=== PATIENT | male | born 1980 | race Two or more races ===

== ENCOUNTER 2018-10-17 11:40 | Inpatient (IN) | payer OTHER ==
[2018-10-17 15:57] VITALS: BMI 40.0
--- NOTE | 2018-10-17 16:32 | HP ---
CIWA Score - Admission Criteria OASAS Guidelines: Admission for Medically Managed Detox: Requires at least one of the followin. CIWA greater than 12 2. Seizures within the past 24 hours 3. Delirium tremens within the past 24 hours 4. Hallucinations within the past 24 hours 5. Acute intervention needed for co occurring medical disorder 6. Acute intervention needed for co occurring psychiatric disorder 7. Severe withdrawal that cannot be handled at a lower level of care (continued vomiting, continued diarrhea, abnormal vital signs) requiring intravenous medication and/or fluids 8. Admission ROS S - HPI Chief Complaint: opioid and cocaine rehabilitation Allergies/Adverse Reactions: Allergies Allergy/AdvReac Type Severity Reaction Status Date / Time shellfish derived Allergy Severe Swelling Verified 10/17/18 15:25 Penicillins AdvReac Severe Swelling Verified 10/17/18 15:24 History of Present Illness: 37 yo male with hx of heroin (IV), cocaine and nicotine dependence is here seeking rehabilitation. Patient anuel was admitted for three weeks to [facility] and discharged today for psych for depression and was alaso treated for multiple abscess and detoxed for opiates d/t depression. Reports was linked to [facility] on 120 mg, reports last attendance one and half months ago, pending verification. Reports sobriety for four years, relapsed one year ago. PMHX: Asthma, Hep C, HTN. Psych: Depression and Bipolar. Denies SI /HI. Reports hx of suicide attempt three years ago. Denies hx of overdose seizures or blackouts. Exam Limitations: No Limitations - Ebola screening Have you traveled outside of the country in the last 21 days: No (N) Have you had contact with anyone from an Ebola affected area: No Do you have a fever: No - Review of Systems Constitutional: No Symptoms Reported EENT: reports: No Symptoms Reported Respiratory: reports: No Symptoms reported Cardiac: reports: No Symptoms Reported GI: reports: No Symptoms Reported : reports: No Symptoms Reported Musculoskeletal: reports: Back Pain Integumentary: reports: No Symptoms Reported Neuro: reports: No Symptoms reported Endocrine: reports: Increased Thirst Hematology: reports: No Symptoms Reported Psychiatric: reports: Orientated x3, Anxious Other Systems: Reviewed and Negative Patient History - Patient Medical History Hx Anemia: No Hx Asthma: Yes Hx Chronic Obstructive Pulmonary Disease (COPD): No Hx Cancer: No Hx Cardiac Disorders: No Hx Congestive Heart Failure: No Hx Hypertension: Yes (diet control ) Hx Hypercholesterolemia: No Hx Pacemaker: No HX Cerebrovascular Accident: No Hx Seizures: No Hx Dementia: No Hx Diabetes: No Hx Gastrointestinal Disorders: Yes (GERD ) Hx Liver Disease: Yes (Hep C, no treatment ) Hx Genitourinary Disorders: No Hx Sexually Transmitted Disorders: No Hx Renal Disease (ESRD): No Hx Thyroid Disease: No Hx Human Immunodeficiency Virus (HIV): No Hx Hepatitis C: Yes Hx Depression: Yes Hx Suicide Attempt: No Hx Bipolar Disorder: Yes Hx Schizophrenia: No - Patient Surgical History Past Surgical History: Yes Hx Appendectomy: Yes Anesthesia Reaction: No - PPD History Previous Implant?: No PPD to be Administered?: Yes - Smoking Cessation Smoking history: Current every day smoker Have you smoked in the past 12 months: Yes Aproximately how many cigarettes per day: 20 Hx Chewing Tobacco Use: No Initiated information on smoking cessation: Yes 'Breaking Loose' booklet given: 10/17/18 - Substance & Tx. History Hx Alcohol Use: No Hx Substance Use: Yes Substance Use Type: Cocaine, Heroin Hx Substance Use Treatment: Yes (Completed detox at [facility] ) - Substances abused Cocaine Substance route: Injection Frequency: Daily Amount used: $100.00 Age of first use: 36 Date of last use: 09/24/18 Heroin Substance route: Injection Frequency: Daily Amount used: $100.00 Age of first use: 17 Date of last use: 09/24/18 Family Disease History - Family Disease History Family Disease History: Diabetes: Mother, Heart Disease: Mother, Respiratory: Mother Admission Physical Exam S - Vital Signs Vital Signs: Vital Signs - 24 hr 10/17/18 10/17/18 15:41 16:08 Temperature 96.9 F L 96.9 F L Pulse Rate 107 H 107 H Respiratory 18 18 Rate Blood Pressure 135/82 135/82 - Physical General Appearance: Yes: Appropriately Dressed, Obese, Anxious HEENTM: Yes: EOMI, Hearing grossly Normal, Normal ENT Inspection, Normocephalic , Normal Voice, HARMAN, Pharynx Normal, Tm's normal Respiratory: Yes: Chest Non-Tender, Lungs Clear, Normal Breath Sounds, No Respiratory Distress, No Accessory Muscle Use Neck: Yes: Within Normal Limits Breast: Yes: Breast Exam Deferred Cardiology: Yes: Regular Rhythm, Regular Rate Abdominal: Yes: Normal Bowel Sounds, Non Tender, Flat, Soft Genitourinary: Yes: Within Normal Limits Back: Yes: Within Normal Limits Musculoskeletal: Yes: full range of Motion, Gait Steady, Pelvis Stable Extremities: Yes: Normal Capillary Refill, Normal Inspection, Normal Range of Motion, Non-Tender Neurological: Yes: event decorator II-XII NML intact, Fully Oriented, Alert, Motor Strength 5/5, Depressed Affect Integumentary: Yes: Normal Color, Warm, Diaphoresis Lymphatic: Yes: Within Normal Limits - Diagnostic (1) Opioid dependence Current Visit: Yes Status: Acute Qualifiers: Substance use status: uncomplicated Qualified Code(s): F11.20 - Opioid dependence, uncomplicated (2) IVDU (intravenous drug user) Current Visit: Yes Status: Acute (3) Cocaine dependence Current Visit: Yes Status: Acute Qualifiers: Substance use status: uncomplicated Qualified Code(s): F14.20 - Cocaine dependence, uncomplicated (4) HTN (hypertension) Current Visit: Yes Status: Chronic Qualifiers: Hypertension type: essential hypertension Qualified Code(s): I10 - Essential (primary) hypertension Comment: Diet controlled (5) Asthma Current Visit: Yes Status: Chronic Qualifiers: Asthma severity: mild Asthma persistence: unspecified Asthma complication type: uncomplicated Qualified Code(s): J45.909 - Unspecified asthma, uncomplicated (6) Hepatitis C Current Visit: Yes Status: Chronic Qualifiers: Viral hepatitis chronicity: chronic Hepatic coma status: without hepatic coma Qualified Code(s): B18.2 - Chronic viral hepatitis C Breathalyzer - Breathalyzer Breathalyzer: 0 Urine Drug Screen - Test Device Lot number: [id number] Expiration date: 06/02/20 - Control Is test valid?: Yes - Results Drug screen NEGATIVE: No Urine drug screen results: THC-Marijuana, KILLIAN-Cocaine, MET-Methamphetamine, MTD- Methadone, BZO-Benzodiazepines Inpatient Rehab Admission - Rehab Decision to Admit Inpatient rehab admission?: Yes - Initial Determination Are CD services needed?: Yes Free of communicable disease: Yes Not in need of hospitalization: Yes - Rehab Admission Criteria Previous failed treatment: Yes Poor recovery environment: Yes Comorbidities: Yes Lacks judgement: Yes Patient is meeting Inpatient Rehab admission criteria:: Yes
[2018-10-17] MEDS ORDERED: ACETAMINOPHEN 325 MG TABLET (FP) PO PRN (16:38)
[2018-10-17] MEDS ORDERED: MAG HYDROX/AL HYDROX/SIMETH 30 ML UNIT-DOSE CUP PO PRN (16:38)
[2018-10-17] MEDS ORDERED: P-EPHED 60MG/TRIPROLIDI 2.5MG TABLET PO PRN (16:38)
[2018-10-17] MEDS ORDERED: NICOTINE POLACRILEX 2 MG GUM BC PRN (16:38)
[2018-10-17] MEDS ORDERED: IBUPROFEN 400 MG TABLET (FP) PO PRN (16:38)
[2018-10-17] MEDS ORDERED: MAGNESIUM CITRATE 300 ML BOTTLE PO PRN (16:38)
[2018-10-17] MEDS ORDERED: MAGNESIUM HYDROX 2400MG/30ML ORAL SUSPENSION 30 ML CUP PO PRN (16:38)
[2018-10-17] MEDS ORDERED: MENTHOL/PHENOL 1 EACH UD MM PRN (16:38)
[2018-10-17] MEDS ORDERED: LOPERAMIDE HCL 2 MG CAPSULE PO PRN (16:38)
[2018-10-17] MEDS ORDERED: guaiFENesin 200 MG/10 ML 10 ML UNIT-DOSE CUPS PO PRN (16:38)
[2018-10-17] MEDS ORDERED: hydrOXYzine PAMOATE 50 MG CAPSULE (FP) PO PRN (16:38)
--- NOTE | 2018-10-17 17:09 | PN ---
[facility] Progress Note Note: Vital Signs Temperature 96.9 F L 10/17/18 16:08 Pulse Rate 107 H 10/17/18 16:08 Respiratory Rate 18 10/17/18 16:08 Blood Pressure 135/82 10/17/18 16:08 O2 Sat by Pulse Oximetry (%) Patient on multiple psych meds did not bring meds with him. Meds reviewed with psych over the phone and patient will be evaluated. one time dose trazadone 100mg HS ordered for today. Continue to monitor.
[2018-10-17] MEDS ORDERED: BACITRACIN 0.9 GM PACKET TP ONE (17:45)
[2018-10-17] MEDS: ALBUTEROL SO4 8 GM HFA INHALER IH SCH ×2 (18:03→21:48)
[2018-10-17] MEDS: GABAPENTIN 100 MG CAPSULE (FP) PO SCH (21:47)
[2018-10-17] MEDS: THIAMINE HCL 100 MG TABLET (FP) PO SCH (21:48)
[2018-10-17] MEDS ORDERED: traZODone HCL 100 MG TABLET (FP) PO ONE (22:00)
[2018-10-17] MEDS ORDERED: MELATONIN 5 MG TABLETS PO PRN (22:00)
[2018-10-18] MEDS: ALBUTEROL SO4 8 GM HFA INHALER IH SCH ×4 (04:50→23:25)
[2018-10-18] MEDS: GABAPENTIN 100 MG CAPSULE (FP) PO SCH ×3 (06:14→21:34)
[2018-10-18 06:52] VITALS: BP 121/80; PULSE 86; TEMP 97.4
[2018-10-18] MEDS ORDERED: PRENATAL VITAMINS W/ FOLIC ACID TABLET (FP) PO SCH (10:00)
[2018-10-18] MEDS ORDERED: NICOTINE 14 MG/24 HOURS TOPICAL PATCH TD SCH (10:00)
--- NOTE | 2018-10-18 12:25 | EKG ---
Test Reason : Blood Pressure : / mmHG Vent. Rate : 098 BPM Atrial Rate : 098 BPM P-R Int : 140 ms QRS Dur : 084 ms QT Int : 350 ms P-R-T Axes : 052 062 046 degrees QTc Int : 446 ms NORMAL SINUS RHYTHM NORMAL ECG NO PREVIOUS ECGS AVAILABLE Confirmed by CANDIDO ORTIZ, GLORIA ([id number]) on 10/18/2018 12:25:15 PM Referred By: Confirmed By:GLORIA REY MD
[2018-10-18 12:50] LABS: ALBUMIN 3.6 g/dl (3.4-5.0); ALK PHOS 100 U/L (45-117); ANION GAP 9 MMOL/L (8-16); BILIRUBIN,TOTAL 0.4 mg/dL (0.2-1); BLOOD UREA NITROGEN 9 mg/dL (7-18); CALCIUM 9.3 mg/dL (8.5-10.1); CHLORIDE 104 mmol/L (98-107); CO2 25 mmol/L (21-32); CREATININE 0.7 mg/dL (0.55-1.3); GLUCOSE,RANDOM 157 mg/dL (74-106); POTASSIUM 3.8 mmol/L (3.5-5.1); SGOT/AST 26 U/L (15-37); SGPT/ALT 41 U/L (13-61); SODIUM 138 mmol/L (136-145); TOT PROT 7.7 g/dl (6.4-8.2)
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
--- NOTE | 2018-10-18 13:29 | PN ---
[facility] Progress Note Note: PT IS A NEW PT REFERRED TO REHAB FROM [facility]. PT WAS AT INPATIENT [facility] FROM 09/19/18 TO 10/17/18 AND DISCHARGED TO THIS REHAB SAME DAY. PT IS ON METHADONE 30 MG DAILY GIVEN AT THE INPATIENT PSYCH PER DISCHARGE PAPERS AND CONFIRMATION BY NURSE CHAD WHITE. THE NURSE ALSO VERIFIED PATIENT'S STATUS WITH THE [facility] WHO INFORMED HER THAT PT HAD BEEN MISSING FROM THE TREATMENT PROGRAM AND WAS DISCHARGED August. THE CLINIC IS OPEN FOR PATIENT TO RETURN TO THEM AFTER REHAB TO BE REINSTATED INTO THE TREATMENT PROGRAM. MEANWHILE, I DISCUSSED THIS CASE WITH DR. JANE HENDERSON, ASST. CHEMICAL CELL CHANGER AND WE AGREED THAT PATIENT WILL BE MAINTAINED ON 30 MG PO DAILY WHILE IN REHAB AND THEN REFERRED BACK TO HIS PREVIOUS METHADONE CLINIC ABOVE TO BE REABSORBED INTO TREATMENT. PT IS ALERT O X 3. DENIES S/H/ I. OOB AMBULATING WITH STAEDY GAIT BUT APPEARS SLIGHTLY FATIGUED. Vital Signs 10/18/18 06:52 Temperature 97.4 F L Pulse Rate 86 Respiratory 19 Rate Blood Pressure 121/80 Laboratory Tests 10/18/18 08:16 Sodium 138 Potassium 3.8 Chloride 104 Carbon Dioxide 25 Anion Gap 9 BUN 9 Creatinine 0.7 Creat Clearance w eGFR 126.90 Random Glucose 157 H Calcium 9.3 Total Bilirubin 0.4 AST 26 ALT 41 Alkaline Phosphatase 100 Total Protein 7.7 Albumin 3.6 NAD PLAN:START METHADONE 30 MG PO DAILY TODAY AND MAINTAIN ON SAME DOSE. INCREASE PO FLUIDS.
[2018-10-18 13:37] LABS: HEMATOCRIT 39.4 % (35.4-49); HEMOGLOBIN 12.7 GM/dL (11.7-16.9); MCH 24.6 pg (25.7-33.7); MCHC 32.2 g/dl (32.0-35.9); MEAN CELL VOLUME 76.4 fl (80-96); MEAN PLT VOLUME 7.8 fl (7.5-11.1); PLATELET COUNT 334 K/MM3 (134-434); RBC 5.16 M/mm3 (4.00-5.60); RDW 19.8 % (11.9-15.9); WHITE BLOOD COUNT 9.3 K/mm3 (4.0-10.0)
[2018-10-18] MEDS ORDERED: ESCITALOPRAM OXALATE 20 MG TABLET (FP) PO SCH (13:45)
[2018-10-18] MEDS ORDERED: chlorproMAZINE HCL 25 MG TABLET PO SCH (13:45)
[2018-10-18] MEDS ORDERED: METHADONE HCL 10 MG TABLET PO ONE (14:00)
[2018-10-18 14:10] LABS: URINE APPEARANCE CLEAR; URINE BACTERIA 2.5 /hpf (NEGATIVE); URINE BILIRUBIN NEGATIVE (NEGATIVE); URINE CASTS 7 /lpf (0-8); URINE COLOR YELLOW; URINE GLUCOSE (UA) NEGATIVE (NEGATIVE); URINE KETONE NEGATIVE (NEGATIVE); URINE LEUK ESTERASE TRACE (NEGATIVE); URINE NITRITE NEGATIVE (NEGATIVE); URINE PROTEIN NEGATIVE (NEGATIVE); URINE RBC 1 /hpf (0-4); URINE UROBILINOGEN 0.2 mg/dL (0.2-1.0); URINE WBC 6 /hpf (0-5)
[2018-10-18] MEDS: THIAMINE HCL 100 MG TABLET (FP) PO SCH (21:35)
[2018-10-18] MEDS ORDERED: traZODone HCL 100 MG TABLET (FP) PO SCH (22:00)
[2018-10-18] MEDS ORDERED: chlorproMAZINE HCL 100 MG TABLET PO SCH (22:00)
--- NOTE | 2018-10-19 04:18 | DS ---
[facility] Detox Discharge Summary Admission Date: 10/17/18 Discharge Date: 10/19/18 - History Additional Comments: Patient reports that he is leaving because he is tired of being in Rehab. Pertinent Past History: Opioid dependence on agonist therapy, Hep. C, asthma, mood disorder, GERD, cocaine dependence, IVDU, HTN - Physical Exam Results Vital Signs: Vital Signs Temperature 97.4 F L 10/18/18 06:52 Pulse Rate 86 10/18/18 06:52 Respiratory Rate 19 10/18/18 06:52 Blood Pressure 121/80 10/18/18 06:52 O2 Sat by Pulse Oximetry (%) Laboratory Last Values WBC 9.3 K/mm3 (4.0-10.0) 10/18/18 08:16 RBC 5.16 M/mm3 (4.00-5.60) 10/18/18 08:16 Hgb 12.7 GM/dL (11.7-16.9) 10/18/18 08:16 Hct 39.4 % (35.4-49) 10/18/18 08:16 MCV 76.4 fl (80-96) L 10/18/18 08:16 MCH 24.6 pg (25.7-33.7) L 10/18/18 08:16 MCHC 32.2 g/dl (32.0-35.9) 10/18/18 08:16 RDW 19.8 % (11.9-15.9) H 10/18/18 08:16 Plt Count 334 K/MM3 (134-434) 10/18/18 08:16 MPV 7.8 fl (7.5-11.1) 10/18/18 08:16 Sodium 138 mmol/L (136-145) 10/18/18 08:16 Potassium 3.8 mmol/L (3.5-5.1) 10/18/18 08:16 Chloride 104 mmol/L (98-107) 10/18/18 08:16 Carbon Dioxide 25 mmol/L (21-32) 10/18/18 08:16 Anion Gap 9 MMOL/L (8-16) 10/18/18 08:16 BUN 9 mg/dL (7-18) 10/18/18 08:16 Creatinine 0.7 mg/dL (0.55-1.3) 10/18/18 08:16 Creat Clearance w eGFR 126.90 (>60) 10/18/18 08:16 Random Glucose 157 mg/dL (74-106) H 10/18/18 08:16 Calcium 9.3 mg/dL (8.5-10.1) 10/18/18 08:16 Total Bilirubin 0.4 mg/dL (0.2-1) 10/18/18 08:16 AST 26 U/L (15-37) 10/18/18 08:16 ALT 41 U/L (13-61) 10/18/18 08:16 Alkaline Phosphatase 100 U/L (45-117) 10/18/18 08:16 Total Protein 7.7 g/dl (6.4-8.2) 10/18/18 08:16 Albumin 3.6 g/dl (3.4-5.0) 10/18/18 08:16 Urine Color Yellow 10/18/18 09:15 Urine Appearance Clear 10/18/18 09:15 Urine pH 7.0 (5.0-8.0) 10/18/18 09:15 Ur Specific [place] 1.019 (1.010-1.035) 10/18/18 09:15 Urine Protein Negative (NEGATIVE) 10/18/18 09:15 Urine Glucose (UA) Negative (NEGATIVE) 10/18/18 09:15 Urine Ketones Negative (NEGATIVE) 10/18/18 09:15 Urine Blood Negative (NEGATIVE) 10/18/18 09:15 Urine Nitrite Negative (NEGATIVE) 10/18/18 09:15 Urine Bilirubin Negative (NEGATIVE) 10/18/18 09:15 Urine Urobilinogen 0.2 mg/dL (0.2-1.0) 10/18/18 09:15 Ur Leukocyte Esterase Trace (NEGATIVE) 10/18/18 09:15 Urine WBC (Auto) 6 /hpf (0-5) 10/18/18 09:15 Urine RBC (Auto) 1 /hpf (0-4) 10/18/18 09:15 Urine Casts (Auto) 7 /lpf (0-8) 10/18/18 09:15 U Epithel Cells (Auto) 2.0 /HPF (0-5/HPF) 10/18/18 09:15 Urine Bacteria (Auto) 2.5 /hpf (NEGATIVE) 10/18/18 09:15 HIV 1&2 Antibody Screen Negative 10/18/18 08:16 HIV P24 Antigen Negative 10/18/18 08:16 Pertinent Admission Physical Exam Findings: Withdrawal symptoms - Medication Discharge Medications: Ambulatory Orders Albuterol Sulfate Inhaler - [Ventolin Hfa Inhaler -] 2 inh PO Q6H 10/17/18 Chlorpromazine [Thorazine -] 50 mg PO DAILY 10/17/18 Chlorpromazine [Thorazine -] 100 mg PO HS 10/17/18 Escitalopram Oxalate [Lexapro -] 20 mg PO DAILY 10/17/18 Folic Acid 1 mg PO DAILY 10/17/18 Multivitamin 1 PO DAILY 10/17/18 Thiamine HCl [B-1] 100 mg PO DAILY 10/17/18 traZODone HCL [Trazodone HCl] 200 mg PO HS 10/17/18 - Diagnosis (1) Cocaine dependence Status: Chronic Qualifiers: Substance use status: uncomplicated Qualified Code(s): F14.20 - Cocaine dependence, uncomplicated (2) GERD (gastroesophageal reflux disease) Status: Chronic (3) IVDU (intravenous drug user) Status: Acute (4) Substance induced mood disorder Status: Chronic (5) Substance-induced sleep disorder Status: Chronic (6) Asthma Status: Chronic Qualifiers: Asthma severity: mild Asthma persistence: unspecified Asthma complication type: uncomplicated Qualified Code(s): J45.909 - Unspecified asthma, uncomplicated (7) HTN (hypertension) Status: Chronic Qualifiers: Hypertension type: essential hypertension Qualified Code(s): I10 - Essential (primary) hypertension (8) Hepatitis C Status: Chronic Qualifiers: Viral hepatitis chronicity: chronic Hepatic coma status: without hepatic coma Qualified Code(s): B18.2 - Chronic viral hepatitis C (9) Nicotine dependence Status: Chronic Qualifiers: Nicotine product type: cigarettes Substance use status: uncomplicated Qualified Code(s): F17.210 - Nicotine dependence, cigarettes, uncomplicated (10) Opioid dependence on agonist therapy Status: Chronic (11) Schizoaffective disorder Status: Chronic - AMA Did Patient Leave Against Medical Advice: Yes
[2018-10-19] MEDS ORDERED: METHADONE HCL 10 MG TABLET PO SCH (06:00)
== END 2018-10-19 03:20 | disposition left against medical advice (07) | DRG 894 ==
LOC: YASAS 11:40 → Y5N 17:16
PROVIDERS: ADMIT Neuromusculoskeletal Medicine & OMM; ATTEND Neuromusculoskeletal Medicine & OMM
PROC: HZ42ZZZ Group Counseling for Substance Abuse Treatment, Cognitive-Behavioral (ICD-10-PCS; principal; 2018-10-17)
DX: F14.20 Cocaine dependence, uncomplicated (principal); F19.282 Other psychoactive substance dependence with psychoactive substance-induced sleep disorder; F12.20 Cannabis dependence, uncomplicated; F17.210 Nicotine dependence, cigarettes, uncomplicated; F25.9 Schizoaffective disorder, unspecified; F19.24 Other psychoactive substance dependence with psychoactive substance-induced mood disorder; F31.9 Bipolar disorder, unspecified; I10 Essential (primary) hypertension; K21.9 Gastro-esophageal reflux disease without esophagitis; J45.909 Unspecified asthma, uncomplicated; Z88.0 Allergy status to penicillin; Z91.013 Allergy to seafood
CPT/HCPCS: 36415; 80053; 81003; 85027; 86593; 87389; 93005; 93010